=== PATIENT | male | born 1950 | race Caucasian/White ===

== ENCOUNTER → 2017-02-07 | Outpatient (CLI) | payer MEDICARE ==
[~2017-02-07] MED LIST: AMLO10TA2 PO; ASPI-482 PO; FINA5TAB4 PO; GLIP5TAB10 PO; HYDR50TA6 PO; LANS30CA PO; LISI40TA PO; METF500T4 PO; METO-269 PO; OMEP40CA5 PO; SIMV20TA3 PO; SITA100T PO; TRAM50TA PO
--- NOTE | 2017-02-07 09:44 | EKG ---
[facility] [address] [place] [address] Test Date: 2017-02-07 Test Time: 09:27:13 Pat Name: JACIEL CALL Department: Room: Gender: M Luggage Maker: BONY : 1950 Requested By: AZ HOFFMAN Order Number: [id number] Reading MD: Kathleen Maciel Measurements Intervals Gore Rate: 60 P: DE: QRS: -151 QRSD: 144 T: 171 QT: 432 QTc: 436 Interpretive Statements SINUS RHYTHM ABNORMAL RIGHT SUPERIOR AXIS DEVIATION RIGHT BUNDLE BRANCH BLOCK CONSIDER RIGHT VENTRICULAR HYPERTROPHY QRS(T) CONTOUR ABNORMALITY CONSISTENT WITH HIGH LATERAL INFARCT AGE UNDETERMINED ABNORMAL ECG Electronically Signed On 02-07-2017 12:31:26 CDT by Kathleen Maciel
== END | disposition home or self-care (01) ==
LOC: EKG 09:01
PROVIDERS: ATTEND Orthopaedic Surgery
DX: Z01.818 Encounter for other preprocedural examination (principal); Z87.891 Personal history of nicotine dependence
CPT/HCPCS: 93005

== ENCOUNTER → 2019-02-20 | Outpatient (CLI) | payer MEDICARE ==
[~2019-02-20] MED LIST changes: -AMLO10TA2 PO; +AMLO10TA8 PO; +LISI-130 PO; -LISI40TA PO; +METF500T16 PO; -METF500T4 PO; +OMEP40CA45 PO; -OMEP40CA5 PO
--- NOTE | 2019-02-20 09:53 | CARD ---
MR#: [id number] Date of Study: 02/20/2019 Ordering Physician: VICKEY MONIQUE, Referring Physician: VICKEY MONIQUE, Cliff: Gladis Lancaster APPROVED REPORT EXAM: Two-dimensional and M-mode echocardiogram with Doppler and color Doppler. Other Information Quality : AverageHR: 61bpm INDICATION Coronary Artery Disease 2D DIMENSIONS RVDd3.3 (2.9-3.5cm)Left Atrium(2D)4.4 (1.6-4.0cm) IVSd1.2 (0.7-1.1cm)Aortic Root(2D)2.5 (2.0-3.7cm) LVDd4.7 (3.9-5.9cm)LVOT Diameter2.2 (1.8-2.4cm) PWd1.0 (0.7-1.1cm)LVDs3.3 (2.5-4.0cm) FS (%) 29.5 %SV56.5 ml LVEF(%)56.5 (>50%) Aortic Valve AoV Peak Willie.135.1cm/sAoV VTI28.9cm AO Peak GR.7.3mmHgLVOT Peak Willie.101.4cm/s AO Mean GR.4mmHgAVA (VMAX)2.96cm2 Mitral Valve MV E Xnqpmkmd69.2cm/sMV E Peak Gr.4mmHg MV DECEL [id number] A Bbsuhwsg54.7cm/s MV E Mean Gr.1mmHgE/A Ratio0.9 Pulmonary Valve PV Peak Kbptdryp83.6cm/s Tricuspid Valve TR P. Dskebuyz706te/sRAP ACWTBWWI0krJq TR Peak Gr.83liLaVBCX49ssRe Pulmonary Vein S1 Hrpwyscb27.4cm/sD2 Azigxfax62.4cm/s LEFT VENTRICLE The left ventricle is normal size. There is mild concentric left ventricular hypertrophy. The left ve ntricular systolic function is normal and the ejection fraction is within normal range. The Ejection Fraction is 55-60%. There is normal LV segmental wall motion. Transmitral Doppler flow pattern is Gra de I-abnormal relaxation pattern. RIGHT VENTRICLE The right ventricle is normal size. There is normal right ventricular wall thickness. The right ventr icular systolic function is normal. ATRIA The left atrium is mildly dilated. The right atrium is mildly dilated. The interatrial septum is inta ct with no evidence for an atrial septal defect or patent foramen ovale as noted on 2-D or Doppler im aging. AORTIC VALVE The aortic valve is thickened but opens well. Doppler and Color Flow revealed no significant aortic r egurgitation. There is no significant aortic valvular stenosis. MITRAL VALVE The mitral valve is thickened but opens well. There is no evidence of mitral valve prolapse. There is no mitral valve stenosis. Doppler and Color-flow revealed trace mitral regurgitation. TRICUSPID VALVE The tricuspid valve is normal in structure and function. Doppler and Color Flow revealed mild tricusp id regurgitation with an estimated PAP of 28 mmHg. There is no tricuspid valve prolapse or vegetation . There is no tricuspid valve stenosis. PULMONIC VALVE Doppler and Color Flow revealed no pulmonic valvular regurgitation. There is no pulmonic valvular johnna nosis. GREAT VESSELS The aortic root is normal in size. The ascending aorta is normal in size. The IVC is normal in size a nd collapses >50% with inspiration. PERICARDIAL EFFUSION There is no pleural effusion. There is no evidence of significant pericardial effusion. Critical Notification Critical Value: No <Conclusion> The left ventricular systolic function is normal and the ejection fraction is within normal range. Th e Ejection Fraction is 55-60%. There is normal LV segmental wall motion. Signed by : Vickey Monique, Electronically Approved : 02/20/2019 09:53:47
== END | disposition home or self-care (01) ==
LOC: ECHO 07:37
PROVIDERS: ATTEND Internal Medicine Cardiovascular Disease
DX: I36.1 Nonrheumatic tricuspid (valve) insufficiency (principal); I25.10 Atherosclerotic heart disease of native coronary artery without angina pectoris
CPT/HCPCS: 93306

== ENCOUNTER → 2019-03-01 | Outpatient (CLI) | payer MEDICARE ==
[~2019-03-01] MED LIST changes: +SIMV20TA18 PO; -SIMV20TA3 PO
[2019-03-01 09:53] LABS: CHOLESTEROL/HDL RATIO 2.6
--- NOTE | 2019-03-01 12:56 | RAD ---
MR#: [id number] Date of Study: 03/01/2019 Ordering Physician: VICKEY SHOEMAKER, Referring Physician: ROSA LAGUNA Tech: RT Odalys Vera) (N) APPROVED REPORT Test Type: Exercise Stress Nurse/Tech: Cheikh Chaves RN Test Indications: CAD Cardiac History: CABG x4=9 yrs ago, HTN, See EMR Medications: ASA 81mg QD, See EMR Medical History: X-Smoker= Quit 9 yrs ago, DM, See EMR Resting ECG: SR Resting Heart Rate: 79 bpm Resting Blood Pressure: 106/63mmHg Pretest Chest Pain: No chest pain Nurse/Tech Notes Lungs CTA, Heart tones regular. Consent: The procedure was explained to the patient in lay terms. Informed consent was witnessed. Yoandy eout was entered into [employer]. History and Stress Test performed by RT Chuy (Rosario) (N) Stress Symptoms No chest pain or symptoms. POST EXERCISE Reason for Termination: Reached target heart rate Target HR: Yes Max HR: 128 bpm 101% of Maximum Predicted HR: 127 bpm Exercise duration: 6:03 min:sec, 3 Stage Exercise capacity: 7.0METs Max Blood Pressure: 162/80mmHg Blood Pressure response to exercise: Normal blood pressure response during stress. Heart Rate response to exercise: WNL Chest Pain: No. Arrhythmia: No. ST Change: No. INTERPRETATION Stress EKG Conclusion: No evidence of stress induced EKG changes. Imaging Protocol IMAGE PROTOCOL: Rest Tc-99m/stress Tc-99m 1 day Rest: Stress: Viability: Radiopharm.Tc99m DjkwumtetYb57d Sestamibi Dose10.5mCi 33mCi Duration 13min. 13min. Img Date 03/01/2019 03/01/2019 Inj-Img Blxj92hxw. 60min. Rest Admin Site:IV - Left AntecubitalAdministrator:RT Chuy (Rosario)(N) Stress Admin Site: IV - Left AntecubitalAdministrator: FLOYD Dunn STRESS DATA End Diast. Vol.63.0mlLVEDV index BSA31.0ml End Syst. Vol.17.0mlLVESV index BSA8.0ml Myocardial Xdsa022.0gEject. Dqhaebpa99.0% Stress Scores Regional WT0.00Summed WT5.00 Regional WM0.00Summed WM8.00 The rest and stress images show normal perfusion, normal contraction and thickening. LV Perfusion There is a FIXED basal inferior wall defect suggestive of diaphragmatic attenuation artifact rather t stephens ischemia or scar based on normal wall motion in this area. Wall Motion Normal EF at > 55% LV Perf. Quant 17 Seg. SSS0.00 17 Seg. SRS5.00 17 Seg. SDS0.00 Stress Defect Extent (% LAD)0.00Rest Defect Extent (% LAD)0.00Rev. Defect Extent (% LAD)0.00 Stress Defect Extent (% LCX) 0.00Rest Defect Extent (% LCX)27.50Rev. Defect Extent (% LCX)0.00 Stress Defect Extent (% RCA)0.00Rest Defect Extent (% RCA)1.10Rev. Defect Extent (% RCA)0.00 Stress Defect Extent (% MARIYA)0.00Rest Defect Extent (% MARIYA)7.00Rev. Defect Extent (% MARIYA)0.00 Other Information Quality:Average Risk Assessment: Low Risk Conclusion 1. No evidence of EKG changes with stress testing. 2. Normal perfusion at stress/rest. 3. Low risk study. 4. EF > 60%. Signed by : Vickey Shoemaker, Electronically Approved : 03/01/2019 12:56:01
== END | disposition home or self-care (01) ==
LOC: NM 08:12
PROVIDERS: ATTEND Internal Medicine Cardiovascular Disease
DX: I25.10 Atherosclerotic heart disease of native coronary artery without angina pectoris (principal); I10 Essential (primary) hypertension; E11.9 Type 2 diabetes mellitus without complications; Z79.01 Long term (current) use of anticoagulants; Z87.891 Personal history of nicotine dependence; Z95.1 Presence of aortocoronary bypass graft
CPT/HCPCS: 36415; 78452; 80061; 83721; 93017; A9500

== ENCOUNTER 2019-05-03 06:56 | Outpatient (CLI) | payer MEDICARE ==
[2019-05-03] VITALS (15 sets, daily range): BP systolic 104–142; BP diastolic 57–79
[~2019-05-03] VITALS: Ht 172.7 cm; Wt 90.7 kg
[2019-05-03 07:54] LABS: BASO % 1 % (0-3); EOS # 0.2 x10^3/uL (0.0-0.7); EOS % 2 % (0-3); HEMATOCRIT 40.4 % (39.0-53.0); HEMOGLOBIN 13.6 g/dL (13.0-17.5); LYMPH # 1.3 x10^3/uL (1.0-4.8); LYMPH % 20 % (24-48); MEAN CORPUSCULAR HEMOGLOBIN 27 pg (25-35); MEAN CORPUSCULAR HGB CONC 34 g/dL (31-37); MEAN CORPUSCULAR VOLUME 80 fL (79-100); MONO # 0.5 x10^3/uL (0.0-1.1); MONO % 7 % (0-9); NEUT # 4.6 x10^3/uL (1.8-7.7); NEUT % 70 % (31-73); PLATELET COUNT 257 x10^3/uL (140-400); RED BLOOD COUNT 5.08 x10^6/uL (4.30-5.70); RED CELL DISTRIBUTION WIDTH 14.9 % (11.5-14.5); WHITE BLOOD COUNT 6.6 x10^3/uL (4.0-11.0)
[2019-05-03] MEDS ORDERED: MIDAZOLAM HCL/PF 2 MG/2 ML VIAL. ONE (08:01)
[2019-05-03] MEDS ORDERED: fentaNYL PF VIAL 100 MCG/2 ML VIAL ONE (08:01)
[2019-05-03 08:06] LABS: PROTHROMBIN TIME PATIENT 13.8 SEC (11.7-14.0)
[2019-05-03] MEDS ORDERED: MIDAZOLAM HCL/PF 2 MG/2 ML VIAL. IV ONE (08:15)
[2019-05-03] MEDS ORDERED: LIDOCAINE WITH 8.4% SOD BICARB 3 ML DISP.SYRIN. IJ ONE (08:15)
[2019-05-03] MEDS ORDERED: fentaNYL PF VIAL 100 MCG/2 ML VIAL IV ONE (08:15)
[2019-05-03] MEDS ORDERED: SITA1TAB11 PO (08:19)
[2019-05-03] MEDS ORDERED: HYDR200T5 PO (08:19)
[2019-05-03] MEDS ORDERED: EMPA10TA PO (08:19)
--- NOTE | 2019-05-03 08:57 | PDOC ---
MODERATE SEDATION ASSESSMENT RISKS/ALTERNATIVES Risks/Alternatives Risks and alternatives of this type of sedation and procedure discussed with: RISK/ALTERNATIVES: Patient H & P ON CHART H & P H & P on chart and reviewed for co-morbid conditions and appropriate labs. H&P ON CHART: Yes STATUS PREG STATUS ASSESSED: Yes MEDS/ALLERGIES REVIEWED Meds/Allergies Reviewed Medications and Allergies including time and route of recently administered narcotics and sedatives. MEDS/ALLERGIES REVIEWED: Yes ASA RATING ASA RATING: II AIRWAY ASSESSMENT Airway Assessment Airway patency, oral function limitations, presence of caps, crowns, dentures, partials, and ability to extend neck assessed. AIRWAY ASSESSMENT: Yes MALLAMPATI SCORE MALLAMPATI SCORE: II PRE-SEDATION ASSESSMENT PRE-SEDATION ASSESSMENT: Yes LARRY KIRKPATRICK MD May 03, 2019 08:57
--- NOTE | 2019-05-03 09:00 | PDOC1 ---
History and Physical Date of Procedure Date of Admission 05.03.19 Procedure Procedure R lung biopsy, mass Indication Indication R lung mass History of Present Illness Reason for Visit same Past Medical History Past Medical History Right lung mass, with probably mediastinal, bony, and liver mets on outside CT Cardiovascular: CAD Pulmonary: COPD GI: No pertinent hx Heme/Onc: No pertinent hx Hepatobiliary: No pertinent hx Psych: No pertinent hx Rheumatologic: No pertinent hx Infectious disease: No pertinent hx ENT: No pertinent hx Renal/: No pertinent hx Endocrine: No pertinent hx Dermatology: No pertinent hx Past Surgical History Past Surgical History: CABG, Other (lung resection due to pneumothorax following open heart surgery) Current Medications Current Medications Current Medications Midazolam HCl (Versed) 2 mg STK-MED ONCE .ROUTE ; Start 05/03/19 at 08:01; Stop 05/03/19 at 08:01; Status DC Fentanyl Citrate (Fentanyl 2ml Vial) 100 mcg STK-MED ONCE .ROUTE ; Start 05/03/19 at 08:01; Stop 05/03/19 at 08:02; Status DC Lidocaine HCl (Buffered Lidocaine 1%) 3 ml 1X ONCE IJ Last administered on 05/03/19at 08:47; Start 05/03/19 at 08:15; Stop 05/03/19 at 08:16; Status DC Midazolam HCl (Versed) 2 mg 1X ONCE IV Last administered on 05/03/19at 08:49; Start 05/03/19 at 08:15; Stop 05/03/19 at 08:16; Status DC Fentanyl Citrate (Fentanyl 2ml Vial) 100 mcg 1X ONCE IV Last administered on 05/03/19at 08:48; Start 05/03/19 at 08:15; Stop 05/03/19 at 08:16; Status DC Active Scripts Active Reported Jardiance (Empagliflozin) 10 Mg Tablet 10 Mg PO DAILY Janumet 50-1,000 Mg Tablet (Sitagliptin Phos/Metformin Hcl) 1 Each Tablet 1 Each PO DAILY Hydroxychloroquine Sulfate 200 Mg Tablet 200 Mg PO DAILY Aspir 81 (Aspirin) 81 Mg Tablet.dr 1 Tab PO DAILY Tramadol Hcl 50 Mg Tablet 1 Tab PO PRN Q6HRS Simvastatin 20 Mg Tablet 1 Tab PO QHS Lansoprazole 30 Mg Capsule.dr 1 Cap PO DAILY Lisinopril 40 Mg Tablet 1 Tab PO DAILY Glipizide 5 Mg Tablet 1 Tab PO BID Toprol Xl (Metoprolol Succinate) 50 Mg Tab.er.24h 1 Tab PO DAILY Amlodipine Besylate 10 Mg Tablet 1 Tab PO DAILY Finasteride 5 Mg Tablet 1 Tab PO DAILY Allergies Allergies: Coded Allergies: No Known Drug Allergies (Unverified , 08/12/14) Physical Exam Vital Signs Vital Signs Date Time Temp Pulse Resp B/P (MAP) Pulse Ox O2 Delivery O2 Flow Rate FiO2 05/03/19 08:49 67 20 98 Nasal Cannula 2.0 05/03/19 07:36 98.2 142/77 (98) 98.2 Lungs: Other (crackles right lung) Heart: Regular rate Assessment Assessment Right lung mass concerning for primary lung ca Plan Plan CT guided lung bx LARRY KIRKPATRICK MD May 03, 2019 09:00
--- NOTE | 2019-05-03 09:23 | RAD ---
Procedure: CT-guided bone biopsy, right lung masslike consolidation. Clinical Indication: Right upper lobe masslike consolidation with mediastinal adenopathy, as well as bony and liver lesions suspicious for metastasis Sedation: Conscious sedation was administered for 30 minutes. The patient was monitored by a qualified independent observer throughout the time of sedation. Please refer to the medical record for exact doses of medications utilized to achieve moderate sedation. Sterility: The procedure was performed in its entirety using appropriate elements of sterile technique. Consent: The procedure was explained in its entirety to the patient or the patients designated patient accounting representative by a member of the treatment team, including a discussion of the risks, benefits and commonly accepted alternatives to the procedure, as well as the expected consequences of no therapy whatsoever. Discussion of the risks included, but was not limited to, those that are most frequent and those that are rare but possibly severe or life-threatening, as well as the possibility of unforeseen complications. Technique and Findings: Following informed consent, the patient was prepped and draped in the usual sterile fashion. 1% Lidocaine was used to achieve local anesthesia over the posterior right thorax.. A small dermatotomy was made. Under periodic CT surveillance, 17-gauge needle was advanced into the masslike consolidation in the right upper lobe. Multiple core biopsy samples were obtained. These were placed in formalin. Needle was removed. Repeat CT demonstrates no pneumothorax or other immediate complication. Sterile dressings were applied. No immediate complications were identified. Impression: CT-guided biopsy, right upper lobe masslike consolidation. PQRS Compliance Statement: One or more of the following individualized dose reduction techniques were utilized for this examination: 1. Automated exposure control 2. Adjustment of the mA and/or kV according to patient size 3. Use of iterative reconstruction technique
--- NOTE | 2019-05-03 11:41 | NUR ---
Discharge Note: Discharge instructions and discharge home medications reviewed with Patient and a copy given. All questions have been answered and understanding verbalized. The following instructions and handouts were given on moderate sedation and post biopsy care. Discontinued PIV. Patient discharged to home with self care accompanie by daughter.
--- NOTE | 2019-05-03 17:07 | RAD ---
CHEST AP ONLY Clinical Indication: Postlung biopsy Comparison: 04/22/2019 CT chest with contrast. Findings: Portable upright frontal view chest was obtained. Sternal wires and mediastinal clips are present. Right upper lung field consolidation noted. Interstitial infiltrates in the right lung field in particular noted. No suspicious left lung infiltrates. No definite pneumothorax. No significant pleural effusions. IMPRESSION: No definite pneumothorax. No change in right lung infiltrates and right upper lung field consolidative process corresponding to a known mass. Electronically signed by: Edwin Luke MD (05/03/2019 5:04 PM) [facility]
--- NOTE | 2019-05-07 13:07 | PATHOLOGY ---
[facility] Accession Number: [id number] . 01 Material submitted: . lung - RIGHT LUNG MASS. Modifiers: right . 01 Clinical history: . Right lung mass . 02 Diagnosis: Lung tissue, right lung mass needle biopsies: - ADENOCARCINOMA, MODERATELY-WELL DIFFERENTIATED. SEE COMMENT. . (JPM:rodríguez; 05/06/2019) QMS 05/06/2019 1100 Local . 02 Comment: Sections of the right lung mass CT guided needle biopsy show extensive replacement of lung parenchyma by a malignant epithelial neoplasm. The neoplasm is composed of small and larger irregular glands which infiltrate a reactive desmoplastic stroma. The malignant glands are lined by epithelial cells having eosinophilic cytoplasm and possessing enlarged moderately pleomorphic hyperchromatic nuclei. Mitotic figures are present. There is no evidence of squamous differentiation. A panel of immunoperoxidase stains is obtained on block A1 and yields the following results: . Cytokeratin 7: Tumor cells positive Cytokeratin 20: Tumor cells negative TTF-1: Tumor cells positive Napsin A: Tumor cells positive CDX2: Tumor cells negative . . 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 The case is also examined by Dr. Nesbitt, who concurs with the diagnosis. The results are reported to Dr. England on 05/07/2019 at 12:44 PM. . . (JPM:rodríguez; 05/07/2019) . . Special stains performed: Immunoperoxidase stains for CK7, CK20, TTF-1, napsin A, and CDX2 . 02 Electronically signed: . Luisito Shannon MD, Pathologist NPI- [id number] . 01 Gross description: . The specimen is received in formalin, labeled "Tin Johnson, right lung mass". Received are five needle cores of pale santos soft tissue ranging in length from 0.3 to 0.6 cm in length by 0.1 cm in diameter. The specimen is submitted entirely in cassette A1 through A3. (CAA; 05/03/2019) QAC/QAC 05/06/2019 1056 Local . 02 Pathologist provided ICD-10: C34.91 . 02 CPT . 060776, M53244, L20110 Specimen Comment: A courtesy copy of this report has been sent to [phone] Specimen Comment: Report sent to Performed at: [address] [place], [place] [id number] MD Nolberto Stock MD Phone: [phone] Performed at: [facility] [address] [place] [id number] MD Luisito Shannon MD Phone: [phone]
== END 2019-05-03 11:20 | disposition home or self-care (01) ==
LOC: INTRAD 06:56
PROVIDERS: ATTEND Internal Medicine Pulmonary Disease
DX: R91.8 Other nonspecific abnormal finding of lung field (principal); I25.10 Atherosclerotic heart disease of native coronary artery without angina pectoris; J44.9 Chronic obstructive pulmonary disease, unspecified; Z79.01 Long term (current) use of anticoagulants; Z95.0 Presence of cardiac pacemaker; J98.4 Other disorders of lung
CPT/HCPCS: 32405; 36415; 71045; 77012; 81325; 85025; 85610; 88271; 88274; 88275; 88305; 88341; 88342; 88360; 88381; 99152; J2250; J3010; 81235

== ENCOUNTER → 2019-05-17 | Outpatient (CLI) | payer MEDICARE ==
[2019-05-03 11:15] VITALS: BP 106/62
[~2019-05-17] MED LIST changes: +CALC-77 PO; +DEXA4TAB PO; +EMPA10TA PO; +FOLI0.8C PO; +GADOTERATE 5 MMOL/10ML VIAL. IVP ONE; +HYDR200T5 PO; +PROC10TA57 PO; +SITA1TAB11 PO
--- NOTE | 2019-05-17 14:56 | RAD ---
EXAM: MRI Brain with and without IV contrast INDICATION: Frequent headaches. History of lung cancer.. TECHNIQUE: Sagittal and axial T1-w and axial T2-w, FLAIR, GRE, coronal T2-w, and diffusion-w images of the brain with ADC maps without contrast followed by post contrast axial and sagittal T1-w and coronal T1-fatsat sequences. 18 mL of dotarem were administered IV IV CONTRAST: Administered COMPARISON: None FINDINGS: BRAIN PARENCHYMA: No evidence of hyperacute, acute, or early subacute infarction. There are scattered T2 and FLAIR signal hyperintensities in the white matter compatible with chronic ischemic microvascular change. Along the right precentral gyrus is a 4 mm ring-enhancing lesion (compare axial image 18 of 26 on series 10 with axial image 18 of 26 on series 8 on the axial precontrast T1-weighted sequence and also see coronal image 13 of 26 of series 11 and sagittal image 20 of 25 on series 12). VENTRICLES & EXTRA-AXIAL SPACES: Ventricles are within normal limits. Basilar cisterns are patent. No abnormal extra-axial fluid or mass. No abnormal enhancement. Partially empty sella. VESSELS: Normal signal voids in the larger intracranial vessels. ORBITS: Orbital contents are unremarkable. SINUSES: Paranasal sinuses are clear. Tympanic cavities and mastoid air cells are clear. OSSEOUS & SOFT TISSUES: Marrow signal is within normal limits. IMPRESSION: Ring enhancing posterior right frontal 4 mm lesion is suspicious for a solitary intracranial metastasis given history of lung cancer. Otherwise no acute findings are appreciated. Electronically signed by: Dea [place] MD (05/17/2019 2:53 PM) [facility]
== END | disposition home or self-care (01) ==
LOC: MRI 12:25
PROVIDERS: ATTEND Internal Medicine Hematology & Oncology
DX: G93.89 Other specified disorders of brain (principal); R51 Headache; Z85.118 Personal history of other malignant neoplasm of bronchus and lung
CPT/HCPCS: 70553; A9575

== ENCOUNTER 2019-05-28 07:05 | Outpatient (CLI) | payer MEDICARE ==
[2019-05-28] VITALS (7 sets, daily range): BP systolic 111–151; BP diastolic 66–82
[~2019-05-28] VITALS: Ht 172.7 cm; Wt 90.7 kg
[~2019-05-28 07:05] MED LIST changes: -CALC-77 PO; -DEXA4TAB PO; -FOLI0.8C PO; -GADOTERATE 5 MMOL/10ML VIAL. IVP ONE; -PROC10TA57 PO
[2019-05-28] MEDS ORDERED: ceFAZolin SODIUM IV Push 1 GM VIAL. IVP ONE (07:15)
[2019-05-28] MEDS ORDERED: PROC10TA57 PO (07:28)
[2019-05-28] MEDS ORDERED: DEXA4TAB PO (07:28)
[2019-05-28] MEDS ORDERED: FOLI0.8C PO (07:28)
[2019-05-28] MEDS ORDERED: CALC-77 PO (07:28)
[2019-05-28 07:48] LABS: BASO # 0.1 x10^3/uL (0.0-0.2); BASO % 1 % (0-3); EOS # 0.1 x10^3/uL (0.0-0.7); EOS % 2 % (0-3); HEMATOCRIT 40.3 % (39.0-53.0); HEMOGLOBIN 13.7 g/dL (13.0-17.5); LYMPH # 1.2 x10^3/uL (1.0-4.8); LYMPH % 20 % (24-48); MEAN CORPUSCULAR HEMOGLOBIN 27 pg (25-35); MEAN CORPUSCULAR HGB CONC 34 g/dL (31-37); MEAN CORPUSCULAR VOLUME 78 fL (79-100); MONO # 0.5 x10^3/uL (0.0-1.1); MONO % 8 % (0-9); NEUT # 4.1 x10^3/uL (1.8-7.7); NEUT % 69 % (31-73); PLATELET COUNT 257 x10^3/uL (140-400); RED BLOOD COUNT 5.16 x10^6/uL (4.30-5.70); RED CELL DISTRIBUTION WIDTH 15.1 % (11.5-14.5)
[2019-05-28] MEDS ORDERED: HEPARIN PF 500 UNIT/5 ML DISP.SYRIN. ONE (07:57)
[2019-05-28] MEDS ORDERED: LIDOCAINE 1%/EPI 1:100,000 20 ML VIAL. ONE (07:57)
[2019-05-28 07:58] LABS: PROTHROMBIN TIME PATIENT 13.4 SEC (11.7-14.0)
[2019-05-28 08:03] LABS: CALCIUM 9.2 mg/dL (8.5-10.1); CREATININE 0.7 mg/dL (0.7-1.3); GFR 111.5; POTASSIUM 4.2 mmol/L (3.5-5.1)
[2019-05-28 08:09] LABS: ALBUMIN 3.6 g/dL (3.4-5.0); ALBUMIN/GLOBULIN RATIO 1.2 (1.0-1.7); TOTAL BILIRUBIN 0.6 mg/dL (0.2-1.0); TOTAL PROTEIN 6.6 g/dL (6.4-8.2)
[2019-05-28] MEDS ORDERED: MIDAZOLAM HCL/PF 2 MG/2 ML VIAL. ONE ×2 (08:11→08:39)
[2019-05-28] MEDS ORDERED: fentaNYL PF VIAL 100 MCG/2 ML VIAL ONE (08:12)
[2019-05-28] MEDS ORDERED: fentaNYL PF VIAL 100 MCG/2 ML VIAL IV ONE (08:30)
[2019-05-28] MEDS ORDERED: MIDAZOLAM HCL/PF 2 MG/2 ML VIAL. IV ONE (08:30)
[2019-05-28] MEDS ORDERED: LIDOCAINE 1%/EPI 1:100,000 20 ML VIAL. SQ ONE (08:30)
--- NOTE | 2019-05-28 08:56 | PDOC ---
MODERATE SEDATION ASSESSMENT RISKS/ALTERNATIVES Risks/Alternatives Risks and alternatives of this type of sedation and procedure discussed with: RISK/ALTERNATIVES: Patient H & P ON CHART H & P H & P on chart and reviewed for co-morbid conditions and appropriate labs. H&P ON CHART: Yes STATUS PREG STATUS ASSESSED: Yes MEDS/ALLERGIES REVIEWED Meds/Allergies Reviewed Medications and Allergies including time and route of recently administered narcotics and sedatives. MEDS/ALLERGIES REVIEWED: Yes ASA RATING ASA RATING: II AIRWAY ASSESSMENT Airway Assessment Airway patency, oral function limitations, presence of caps, crowns, dentures, partials, and ability to extend neck assessed. AIRWAY ASSESSMENT: Yes MALLAMPATI SCORE MALLAMPATI SCORE: II PRE-SEDATION ASSESSMENT PRE-SEDATION ASSESSMENT: Yes LARRY KIRKPATRICK MD May 28, 2019 08:56
--- NOTE | 2019-05-28 08:57 | PDOC ---
Exam Nail Welter Nail Welter Bart Review Engineer Review Engineer Annie Pre-Procedure Diagnosis Pre-Procedure Diagnosis Lung CA Post-Procedure Diagnosis Post-Procedure Diagnosis Same Procedure Performed Procedure Performed L IJ powerport placement Type of Anesthesia Type of Anesthesia Mod Sed Estimated Blood Loss EBL: 5 Specimens Specimans None Drain/Tubes Drains/Tubes None Condition of Patient Condition of Patient Stable Disposition Disposition Return to [facility] for recovery ~ 1 - 2 hours. Expect discharge home. LARRY KIRKPATRICK MD May 28, 2019 08:57
--- NOTE | 2019-05-28 09:15 | RAD ---
Procedure: Ultrasound and fluoroscopically guided placement of right internal jugular power port.. 05/28/2019 7:10 AM Clinical Indication: LUNG CA Sedation: Conscious sedation was administered for 35 minutes. The patient was monitored by a qualified independent observer throughout the time of sedation. Please refer to the medical record for exact doses of medications utilized to achieve moderate sedation. Fluoroscopy time: 2.2 minutes Dose area product: 7 Gycm2 Consent: The procedure was explained in its entirety to the patient or the patients designated vaccine customer representative by a member of the treatment team, including a discussion of the risks, benefits and commonly accepted alternatives to the procedure, as well as the expected consequences of no therapy whatsoever. Discussion of the risks included, but was not limited to, those that are most frequent and those that are rare but possibly severe or life-threatening, as well as the possibility of unforeseen complications. Technique and Findings: All elements of maximal sterile barrier technique including the use of a cap, mask, sterile gown, sterile gloves, large sterile sheet, appropriate hand hygiene, and 2% chlorhexidine for cutaneous antisepsis (or acceptable alternative antiseptic per current guidelines) were followed for this procedure.Following informed consent, and a timeout procedure, the patient was prepped and draped in the usual sterile fashion. Ultrasound interrogation of the right neck revealed patency and compressibility of the right internal jugular vein. A 21-gauge micropuncture was then used to gain access to this vein under ultrasound guidance. A hard copy ultrasound image was recorded. The needle was exchanged over a wire for a sheath. A 1 inch incision was made several centimeters inferior to the venotomy site. A catheter was tunneled from this site dermatotomy site in the neck. Catheter was advanced through peel-away sheath such that its tip was in the proximal right atrium with the patient supine. The catheter was trimmed to length and connected to the port reservoir. The port was found to flush and aspirate normally. The wound was closed in layers using 4-0 Vicryl suture. Sterile dressings were applied. Impression: Successful ultrasound and fluoroscopically guided placement of a right internal jugular PowerPort
--- NOTE | 2019-05-28 10:35 | NUR ---
Discharge Note: JACIEL CALL Discharge instructions and discharge home medications reviewed with Patient and a copy given. All questions have been answered and understanding verbalized. The following instructions and handouts were given: implanted port and moderate sedation, pt info pack from convention worker Dressing site to L chest dry and intact Discontinued lines and drains: IV site intact. Patient discharged to home with family via wheelchair. DYANA COBB
== END 2019-05-28 10:35 | disposition home or self-care (01) ==
LOC: INTRAD 07:05
PROVIDERS: ATTEND Internal Medicine Hematology & Oncology
DX: C34.11 Malignant neoplasm of upper lobe, right bronchus or lung (principal); I25.2 Old myocardial infarction; I10 Essential (primary) hypertension; E11.9 Type 2 diabetes mellitus without complications; Z87.891 Personal history of nicotine dependence; Z95.1 Presence of aortocoronary bypass graft; Z96.659 Presence of unspecified artificial knee joint; Z79.82 Long term (current) use of aspirin; Z79.899 Other long term (current) drug therapy; Z79.84 Long term (current) use of oral hypoglycemic drugs; Z79.01 Long term (current) use of anticoagulants
CPT/HCPCS: 36415; 36561; 76937; 77001; 80053; 85025; 85610; C1751; C1892; J0696; J2250; J3010; J3490; 99152; 99153

== ENCOUNTER → 2019-07-09 | Outpatient (CLI) | payer MEDICARE ==
[2019-05-28 10:15] VITALS: BP 116/68
[~2019-07-09] MED LIST changes: +CALC-77 PO; +DEXA4TAB PO; +FOLI0.8C PO; +PROC10TA57 PO
[2019-07-09] MEDS: IOHEXOL 350 MG/ML 100 ML VIAL. IV ONE (14:35)
--- NOTE | 2019-07-09 15:30 | RAD ---
CT angiography chest with contrast PQRS statement: CT scans at this facility use dose reduction including either automated exposure control, iterative reconstructions, and /or weight based radiation dosing via mA and kV modification when appropriate to reduce radiation dose to as low as reasonably achievable. TECHNIQUE: CT imaging the chest with 3-D MIP reconstructions of the pulmonary arteries to assess for emboli with 100 mL Omnipaque 350 intravenous contrast. HISTORY: Shortness of breath. History of lung cancer. COMPARISON: CT chest April 22, 2019. FINDINGS: T9 pathologic compression fracture associated with a mixed lytic sclerotic bony lesion the degree of height loss and bony retropulsion is slightly progressed associated with mild spinal canal stenosis, the lesion demonstrates greater bony sclerosis. At the posterior T6 vertebral body there is a separate mixed lytic sclerotic bony lesion with greater bony sclerosis. Lytic lesions separately at the T1, T7, T10-T12 vertebra have also progressed in size. Left lateral seventh rib expansile lytic lesion has progressed in size with nondisplaced pathologic fracture again demonstrated. Left lateral lower chest wall lipoma stable. 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 Separate fatty lipoma left axilla. Heart size normal. Calcified plaque coronary arteries and coronary bypass surgery. Calcified plaque thoracic aorta. Esophagus unremarkable. There are bilateral basilar lower lobar pulmonary artery emboli new from prior imaging. No saddle embolus. There is a moderate pleural effusion thickness of 6 cm has increased in size prior study previously was 1 cm. Subcarinal adenopathy measuring 2 cm and paratracheal adenopathy diameter 3 cm stable with smaller AP window lymph nodes present. There is increased consolidation at the right upper and middle lobes contiguous with the ill-defined right suprahilar upper lobe and right hilar mass. Numerous subcentimeter solid nodules right lower lobe have increased in number and size. Pulmonary emphysema. Tiny subcentimeter nodules left lung grossly stable. IMPRESSION: 1. Bilateral basilar lower lobar pulmonary artery emboli. 2. Moderate right pleural effusion has enlarged with mild passive atelectasis of the right lower lobe. 3. Increased masslike consolidation at the right hilum and right upper lobe and right middle lobe which could be postobstructive pneumonia although progression of the patient's tumor is also a consideration. 4. 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 5. Mediastinal adenopathy stable. 6. 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 FOR INTERNAL CODING PURPOSES Critical result: Critical results called to DR. EZEQUIEL BRAUN at 07/09/2019 3:24 PM. RESULT CODE: (C) Electronically signed by: Dez Gandara MD (07/09/2019 3:27 PM) [id number]
== END ==
LOC: CT 14:07
PROVIDERS: ATTEND Internal Medicine Hematology & Oncology
DX: C34.11 Malignant neoplasm of upper lobe, right bronchus or lung (principal); R53.83 Other fatigue; I26.99 Other pulmonary embolism without acute cor pulmonale; J90 Pleural effusion, not elsewhere classified; J98.11 Atelectasis; R59.0 Localized enlarged lymph nodes; R91.8 Other nonspecific abnormal finding of lung field
CPT/HCPCS: 71275; Q9967

== ENCOUNTER → 2019-07-15 | Outpatient (CLI) | payer MEDICARE ==
[2019-05-28 10:15] VITALS: BP 116/68
--- NOTE | 2019-07-15 08:01 | RAD ---
Exam: VENOUS LOWER EXTREMITY LEFT Indication: Left lower extremity swelling, history of PE Technique: Color-flow and pulsed wave duplex ultrasound with compression of venous structures of the left lower extremity. Comparison: None Available. Findings: Occlusive thrombus in the left superficial femoral vein extending through the popliteal vein and into the peroneal and posterior tibial veins. Impression: Positive for left lower extremity DVT. Electronically signed by: Kavin Thurston MD (07/15/2019 7:58 AM) [id number]
== END | disposition home or self-care (01) ==
LOC: US 07:07
PROVIDERS: ATTEND Internal Medicine Hematology & Oncology
DX: I82.4Z2 Acute embolism and thrombosis of unspecified deep veins of left distal lower extremity (principal); R22.42 Localized swelling, mass and lump, left lower limb
CPT/HCPCS: 93971

== ENCOUNTER → 2019-08-02 | Outpatient (CLI) | payer MEDICARE ==
[2019-05-28 10:15] VITALS: BP 116/68
--- NOTE | 2019-08-02 19:22 | RAD ---
EXAM: PET W CT SKULL TO MIDTHIGH EXAM DATE: 08/02/2019 INDICATION: Lung cancer restaging RADIOPHARMACEUTICAL: 14.9 mCi of F-18 Fluorodeoxyglucose (FDG) I.V. via the left antecubital fossa. TECHNIQUE: Patient weight: 190 pounds. Following at least four-hour fasting, the patient's blood glucose was 94 mg/dl. Approximately 1 hour after administration of FDG, overlapping emission scanning was performed from the orbital meatal line through the pelvis. A low-dose CT was performed for attenuation correction purposes and anatomic localization. Fused images of PET and CT were reviewed. Any standardized uptake values (SUV) reported are maximum values within a volume region of interest, expressed in gm/ml. COMPARISON: CT pulmonary angiogram of July 09, 2019 FINDINGS: PET: In the head and neck, a right level 7 cervical lymph node/upper mediastinal lymph node best appreciated on axial images 57 through 65 on series 2 shows abnormal FDG uptake to max SUV of 10.0. There is also asymmetric FDG uptake in the left carotid gland in the superficial lobe, likely reflecting activity in an intraparotid lymph node measuring 8 mm in diameter to max SUV of 2.9. In the chest, there is been further consolidation in the right upper lobe with diffuse FDG uptake to max SUV of 13.7. Mediastinal adenopathy is also present at multiple levels, loan servicing representative lesions include a prevascular 1.2 cm short axis node showing FDG activity to a max SUV of 6.3. Subcarinal lymph node 2.0 cm in diameter showing FDG uptake to max SUV of 5.7, right lower paratracheal lymph node 1.7 cm in short axis diameter showing FDG uptake to max SUV of 5.7. Left hilar uptake to max SUV of 5.1 is also noted. No FDG uptake in the moderate right pleural effusion. In the abdomen and pelvis, heterogeneous activity in the liver is present this appears in a patchy distribution with maximum FDG uptake in the peripheral right hepatic lobe measuring max SUV of 11.4 and other areas of lower intensity FDG uptake showing a max SUV of 6.3. There is otherwise no abnormal FDG activity noted in the nonskeletal structures. The bones however show numerous FDG avid lesions from the humerus down through multiple levels in the spine to the iliac bones and the bilateral proximal femurs. Parole Agent lesions include: Right proximal humeral sclerotic lesion (image 39 of axial series 2) showing a max SUV of 12.2, an osteolytic lesion in T1 shortening uptake to max SUV of 9.7, a lytic lesion in T7 showing uptake to max SUV of 10.6, osteolytic lesions in the right iliac wing and iliac body respectively showing FDG uptake to max SUV of 8.3 and 7.0. Bilateral sacral lytic lesions showing uptake on the right to max SUV 10.6 and on the left to 19.7. Small lesions in the right and left femoral necks are present to max SUV of 4.[address]: Stable left chest port. Confluent right upper lobe consolidation and moderate right pleural effusion. Centrilobular emphysema in the residual aerated lung. Innumerable tiny nodules in the residual aerated right lower lobe are noted as well. These appear similar to prior. Left chest wall intramuscular lipoma along the midaxillary line. In the abdomen and pelvis, atherosclerotic arterial calcifications and tortuosity and scattered colonic diverticuli are noted. Bones show extensive osteolytic lesions throughout the skeleton in a pattern consistent with osseous metastatic disease. There are multiple bilateral pathologic rib fractures in varying stages of healing. IMPRESSION: Findings consistent with extensive emmanuel and osseous metastatic deposits as described, with progression of confluent consolidation in the right upper lobe. Cannot exclude lymphangitic carcinomatosis in the right lung. Electronically signed by: Dea Mitchell MD (08/02/2019 7:19 PM) [id number]
== END ==
LOC: PETSC 11:32
PROVIDERS: ATTEND Internal Medicine Hematology & Oncology
DX: C34.11 Malignant neoplasm of upper lobe, right bronchus or lung (principal); R53.83 Other fatigue; J90 Pleural effusion, not elsewhere classified; J43.2 Centrilobular emphysema; I70.8 Atherosclerosis of other arteries
CPT/HCPCS: 78815; A9552